=== PATIENT | female | born 1985 | race Caucasian/White ===

== ENCOUNTER 2017-07-21 15:36 | Observation (INO) | payer OTHER ==
[~2017-07-21] VITALS: Ht 158 cm; Wt 62.1 kg
[2017-07-21] MEDS ORDERED: PREN1TAB80 PO (16:00)
[2017-07-21 16:01] VITALS: BP 116/75
== END 2017-07-21 21:00 | disposition home or self-care (01) ==
LOC: 4S 15:36
PROVIDERS: ADMIT Obstetrics & Gynecology; ATTEND Obstetrics & Gynecology
DX: O62.9 Abnormality of forces of labor, unspecified (principal); Z3A.39 39 weeks gestation of pregnancy
CPT/HCPCS: 59025

== ENCOUNTER 2017-07-22 08:55 | Inpatient (IN) | payer OTHER ==
[~2017-07-22] VITALS: Ht 182.9 cm; Wt 62.6 kg
[~2017-07-22 08:55] MED LIST: PREN1TAB80 PO
[2017-07-22] MEDS ORDERED: RINGERS SOLUTION,LACTATED 1,000 ML IV PRN (09:02)
[2017-07-22] MEDS ORDERED: OXYTOCIN 30 UNITS/LACT RINGERS 500 ML IV ONE (09:02)
[2017-07-22] MEDS ORDERED: FentaNYL CITRATE-PF 100 MCG/2 ML VIAL IVP PRN (09:15)
[2017-07-22] MEDS ORDERED: CITRIC ACID/SODIUM CITRATE 30 ML SOLUTION UDCUP PO PRN (09:15)
[2017-07-22] MEDS ORDERED: METOCLOPRAMIDE HCL 5 MG/ML 2 ML VIAL IVP PRN (09:15)
[2017-07-22 09:41] VITALS: BP 107/71
[2017-07-22 09:59] LABS: BASOPHILS % (AUTO) 0.2 % (0.0-2.0); EOSINOPHILS % (AUTO) 1.2 % (1.0-6.0); HEMATOCRIT 32.2 % (36-46); HEMOGLOBIN 11.2 g/dL (12.0-16.0); LYMPHOCYTES # (AUTO) 1.9 K/uL (1.0-4.8); LYMPHOCYTES % (AUTO) 21.5 % (22.0-44.0); MEAN CORPUSCULAR HEMOGLOBIN 31.8 pg (26.0-34.0); MEAN CORPUSCULAR HGB CONC 34.9 G/dL (31.0-37.0); MEAN CORPUSCULAR VOLUME 91 fL (80-100); MONOCYTES # (AUTO) 0.4 K/uL (0.1-1.0); MONOCYTES % (AUTO) 5.1 % (2.0-9.0); NEUTROPHILS # (AUTO) 6.3 K/uL (1.8-7.7); PLATELET COUNT (AUTO)-OB 210 K/uL (150-450); RED BLOOD CELL COUNT(AUTO) 3.53 MIL/uL (4.00-5.20); RED CELL DISTRIBUTION WIDTH 14.6 % (11.5-14.5)
[2017-07-22] MEDS: RINGERS SOLUTION,LACTATED 1,000 ML IV SCH ×2 (10:00→12:32)
[2017-07-22] MEDS ORDERED: OXYTOCIN 30 UNITS/LACT RINGERS 500 ML IV PRN (10:53)
[2017-07-22] MEDS ORDERED: LIDOCAINE HCL/PF 2% 5 ML VIAL ONE (13:33)
[2017-07-22] MEDS ORDERED: ROPIVACAINE HCL/PF 0.2% 100 ML ED ONE (13:33)
[2017-07-22] MEDS ORDERED: ROPIVACAINE HCL/PF 0.2% 100 ML ED PRN (14:10)
[2017-07-22] MEDS ORDERED: DiphenhydrAMINE HCL 50 MG/ML VIAL IVP PRN (14:15)
[2017-07-22] MEDS ORDERED: ONDANSETRON HCL 4 MG/2 ML VIAL IVP PRN (14:15)
[2017-07-22] MEDS ORDERED: NALBUPHINE HCL 10 MG/ML VIAL IVP PRN (14:15)
[2017-07-22] MEDS ORDERED: BENZOCAINE 20%/MENTHOL 56 GM SPRAY CANISTER TP PRN (17:45)
[2017-07-22] MEDS ORDERED: GLYCERIN/WITCH HAZEL LEAF 40 PADS JAR TP PRN (17:45)
[2017-07-22] MEDS ORDERED: ACETAMINOPHEN/CODEINE 300-30 MG TABLET PO PRN (17:45)
[2017-07-22] MEDS ORDERED: LANOLIN 7 GM OINTMENT TP PRN (17:45)
[2017-07-22] MEDS: IBUPROFEN 800 MG TABLET PO SCH (19:01)
[2017-07-22] MEDS ORDERED: OXYGEN THERAPY IH SCH (20:00)
[2017-07-22] MEDS: ACETAMINOPHEN/CODEINE 300-30 MG TABLET PO PRN (20:52)
[2017-07-22] MEDS: MAGNESIUM HYDROXIDE SUSPENSION 30 ML UDCUP PO SCH (22:52)
[2017-07-23] MEDS: ACETAMINOPHEN/CODEINE 300-30 MG TABLET PO PRN ×3 (00:03→10:25)
[2017-07-23] MEDS: IBUPROFEN 800 MG TABLET PO SCH ×3 (02:02→14:39)
[2017-07-23] MEDS: MAGNESIUM HYDROXIDE SUSPENSION 30 ML UDCUP PO SCH (09:24)
[2017-07-23] MEDS ORDERED: SENNA/DOCUSATE SODIUM 187-50 MG TABLET PO ONE (09:45)
[2017-07-23] MEDS ORDERED: ONDANSETRON HCL 4 MG TABLET PO ONE (10:45)
[2017-07-23] MEDS ORDERED: IBUP-2070 PO (10:58)
[2017-07-23] MEDS ORDERED: DSS100 PO (10:58)
[2017-07-23] MEDS ORDERED: FERR-89 PO (10:59)
== END 2017-07-23 17:30 | disposition home or self-care (01) | DRG 775 ==
LOC: OBSVTOIN 08:55 → 4S 08:55
PROVIDERS: ADMIT Obstetrics & Gynecology; ATTEND Obstetrics & Gynecology
PROC: 10E0XZZ Delivery of Products of Conception, External Approach (ICD-10-PCS; principal; 2017-07-22)
PROC: 10907ZC Drainage of Amniotic Fluid, Therapeutic from Products of Conception, Via Natural or Artificial Opening (ICD-10-PCS; 2017-07-22)
PROC: 3E033VJ Introduction of Other Hormone into Peripheral Vein, Percutaneous Approach (ICD-10-PCS; 2017-07-22)
PROC: 0W8NXZZ Division of Female Perineum, External Approach (ICD-10-PCS; 2017-07-22)
PROC: 4A0HXCZ Measurement of Products of Conception, Cardiac Rate, External Approach (ICD-10-PCS; 2017-07-22)
PROC: 0HQ9XZZ Repair Perineum Skin, External Approach (ICD-10-PCS; 2017-07-22)
PROC: 3E0R3BZ Introduction of Anesthetic Agent into Spinal Canal, Percutaneous Approach (ICD-10-PCS; 2017-07-22)
PROC: 00HU33Z Insertion of Infusion Device into Spinal Canal, Percutaneous Approach (ICD-10-PCS; 2017-07-22)
DX: O63.0 Prolonged first stage (of labor) (principal); O71.5 Other obstetric injury to pelvic organs; Z37.0 Single live birth; Z3A.39 39 weeks gestation of pregnancy; Z79.899 Other long term (current) drug therapy
CPT/HCPCS: 86850; 86900; 86901; J2590; J2795; J3010; J3490; J7120; Q0162